=== PATIENT | female | born 1950 | race Two or more races ===

== ENCOUNTER 2017-09-25 13:08 | Outpatient (CLI) | payer OTHER | END 2017-09-25 13:24 | disposition home or self-care (01) | LOC: SONOGRAMA 13:08 | DX: S00.03XS Contusion of scalp, sequela (principal) ==

== ENCOUNTER 2021-12-21 08:22 | Outpatient (CLI) | payer OTHER | END 2021-12-21 08:24 | disposition home or self-care (01) | LOC: SONOGRAMA 08:22 | PROVIDERS: ATTEND Internal Medicine Gastroenterology | DX: R10.11 Right upper quadrant pain (principal) ==

== ENCOUNTER 2023-04-14 13:07 | Emergency (ER) | payer OTHER ==
[~2023-04-14] VITALS: Ht 165.1 cm; Wt 65.8 kg
[2023-04-14] MEDS ORDERED: CRESTOR5 MG PO (13:10)
[2023-04-14 16:41] LABS: HEMATOCRIT 40.3 % (36.0-45.00); HEMOGLOBIN 13.5 g/dL (12.0-15.00); MEAN CELL VOLUME 91.1 fL (80.00-100.00); MEAN CORPUSCULAR HEMOGLOBIN 30.4 pg (27.00-32.0); MEAN CORPUSCULAR HGB CONC 33.4 g/dl (32.0-36.0); PLATELET COUNT 159 K/uL (150-450); RED BLOOD COUNT 4.43 M/uL (4.00-6.00); RED CELL DISTRIBUTION WIDTH 13.7 % (11.5-14.5)
[2023-04-14] MEDS ORDERED: TUSSIN DM LIQU118 ML PO (17:42)
[2023-04-14] MEDS ORDERED: ZITHROMAX500 MG PO (17:42)
== END 2023-04-14 18:09 | disposition home or self-care (01) ==
LOC: ER 13:08
PROVIDERS: Nurse Practitioner Family
DX: J00 Acute nasopharyngitis [common cold] (principal); Z88.8 Allergy status to other drugs, medicaments and biological substances; E78.49 Other hyperlipidemia; Z20.822 Contact with and (suspected) exposure to COVID-19